=== PATIENT | male | born 1955 | race American Indian/Alaskan Native ===

== ENCOUNTER 2021-06-24 23:00 | Inpatient (IN) | payer MEDICARE ==
[2021-06-25] MEDS ORDERED: ONDANSETRON 4 MG ODT TAB PO ONE (00:31)
[2021-06-25] MEDS ORDERED: HYDROcodone/ACETAMINOPHEN 7.5-325MG TAB PO ONE (00:31)
[2021-06-25] MEDS ORDERED: predniSONE 50 MG TAB PO ONE (00:31)
--- NOTE | 2021-06-25 01:11 | XRay Report ---
Left hip 2 views INDICATION: Left hip pain following fall IMPRESSION: There are nondisplaced fractures involving the left inferior pubic ramus as well as the l eft ischium near the junction with the left acetabulum. Diffuse osteopenia. Signer Name: Ruslan Thomas MD Signed: 06/25/2021 1:07 AM Workstation Name: [id number]
--- NOTE | 2021-06-25 01:24 | Emergency Department Report ---
ED Lower Extremity HPI - General Chief Complaint: Pain General Stated Complaint: LEFT HIP PAIN Source: patient, EMS Mode of arrival: Wheelchair Limitations: No Limitations - History of Present Illness Initial Comments: Patient is a 66-year-old male with a history of chronic osteoarthritis and s/p left total hip replacement presents to the ED with complaint of acute onset persistent severe nontraumatic left hip pain for the last 4 hours. Patient states that she is unable to bear weight on the left leg because of severe left hip pain. Patient states that he was seated in the house in the couch watching TV when he turned and felt a sharp pain in his left hip and since then he has not been able to bear weight on the left leg because of worsening pain. Patient denies numbness and tingling or weakness of left leg, dizziness, syncope, chest pain, fall, heavy lifting, hematuria, dysuria, testicular pain, back pain, chest pain, shortness of breath, urinary or bowel incontinence. MD Complaint: hip injury (left hip pain) -: Sudden, hour(s) (4) Injury: Hip: Left (pain) Type of Injury: inversion Place: home Severity: severe Severity scale (0 -10): 8 Improves With: nothing Worsens With: weight bearing, movement, palpation Context: walking Associated Symptoms: snap/pop sensation, unable to bear weight. denies: swelling, numbness, tingling, able to partially bear weight, ambulatory - Related Data Allergies Allergy/AdvReac Type Severity Reaction Status Date / Time No Known Allergies Allergy Verified 06/24/21 23:33 ED Review of Systems ROS: Stated complaint: LEFT HIP PAIN Other details as noted in HPI Constitutional: denies: chills, fever Eyes: denies: eye pain, eye discharge, vision change ENT: denies: ear pain, throat pain Respiratory: denies: cough, shortness of breath, wheezing Cardiovascular: denies: chest pain, palpitations Endocrine: no symptoms reported Gastrointestinal: denies: abdominal pain, nausea, vomiting, diarrhea Genitourinary: denies: urgency, dysuria Musculoskeletal: arthralgia (Left hip pain). denies: back pain, joint swelling Skin: denies: rash, lesions Neurological: denies: headache, weakness, paresthesias Psychiatric: denies: anxiety, depression Hematological/Lymphatic: denies: easy bleeding, easy bruising ED Past Medical Hx - Past Medical History Hx Liver Disease: Yes ED Physical Exam - General Limitations: No Limitations General appearance: alert, in no apparent distress - Head Head exam: Present: atraumatic, normocephalic, normal inspection - Eye Eye exam: Present: normal appearance, PERRL, EOMI Pupils: Present: normal accommodation - ENT ENT exam: Present: normal exam, normal orophraynx, mucous membranes moist, TM's normal bilaterally, normal external ear exam - Neck Neck exam: Present: normal inspection, full ROM. Absent: tenderness - Respiratory Respiratory exam: Present: normal lung sounds bilaterally. Absent: respiratory distress, wheezes, rales, rhonchi, stridor, chest wall tenderness, accessory muscle use, decreased breath sounds, prolonged expiratory - Cardiovascular Cardiovascular Exam: Present: regular rate, normal rhythm, normal heart sounds. Absent: systolic murmur, diastolic murmur, rubs, gallop - GI/Abdominal GI/Abdominal exam: Present: soft, normal bowel sounds. Absent: tenderness, guarding, hyperactive bowel sounds, hypoactive bowel sounds, organomegaly - Extremities Exam Extremities exam: Present: normal inspection, tenderness (Palpable severe left hip tenderness with limited range of motion due to pain), normal capillary refill. Absent: full ROM (Limited range of motion of left hip due to pain), pedal edema, joint swelling, calf tenderness - Back Exam Back exam: Present: normal inspection, full ROM. Absent: tenderness, CVA tenderness (R), CVA tenderness (L), muscle spasm, paraspinal tenderness, vertebral tenderness - Neurological Exam Neurological exam: Present: alert, oriented X3, CN II-XII intact, normal gait, reflexes normal - Psychiatric Psychiatric exam: Present: normal affect, normal mood - Skin Skin exam: Present: warm, dry, intact, normal color. Absent: rash ED Course Vital Signs 06/24/21 23:32 Temperature 98.7 F Pulse Rate 67 Respiratory 16 Rate Blood Pressure 121/100 [Left] O2 Sat by Pulse 100 Oximetry - Reevaluation(s) Reevaluation #1: 06/25/21 01:43 I paged and discussed the patient's case with the orthopedic surgeon on-call Dr. Chandler who advised that the patient be admitted by the hospitalist physician on-call for pain control and he shall consult with the patient in the morning. I therefore paged and discussed the patient's case with the hospitalist physician on-call Dr. Le who admitted the patient to the hospital. ED Lower Extremity MDM - Radiology Data Radiology results: report reviewed, image reviewed [facility] [address] [place] [address] XRay Report Signed Patient: COLEEN GARCIA MR#: [id number] : 1955 Acct:[id number] Age/Sex: 66 / M ADM Date: 06/24/21 Loc: ED Attending Dr: Ordering Physician: DARCIE PINTO Date of Service: 06/25/21 Procedure(s): XR hip 2-3V LT Accession Number(s): [id number] cc: DARCIE PINTO Fluoro Time In Minutes: Left hip 2 views INDICATION: Left hip pain following fall IMPRESSION: There are nondisplaced fractures involving the left inferior pubic ramus as well as the left ischium near the junction with the left acetabulum. Diffuse osteopenia. Signer Name: Ruslan Thomas MD Signed: 06/25/2021 1:07 AM Workstation Name: [id number] Transcribed By: Dictated By: Ruslan Thomas MD Electronically Authenticated By: Ruslan Thomas MD Signed Date/Time: 06/25/21106 DD/ 3 TD/TT: - Medical Decision Making This is a 66-year-old male with a history of chronic osteoarthritis and s/p left total hip replacement presents to the ED with complaint of acute onset persistent severe nontraumatic left hip pain for the last 4 hours. Patient states that she is unable to bear weight on the left leg because of severe left hip pain. Patient states that he was seated in the house in the couch watching TV when he turned and felt a sharp pain in his left hip and since then he has not been able to bear weight on the left leg because of worsening pain. In the ED, patient is alert and oriented x3 and is not in any distress but appears to be in significant pain. Patient was treated for pain in the ED and left hip x- ray showed diffuse osteopenia and nondisplaced fractures involving the left inferior pubic ramus as well as the left ischium near the junction with the left acetabulum. I discussed the patient's case with the ED attending physician Dr. Oseguera who advised that the orthopedic surgeon on-call be paged and to discuss the findings with him. I therefore paged and discussed the patient's case and findings with the orthopedic surgeon on-call Dr. Chandler who advised that the patient be admitted to the hospital by the hospitalist physician on-call for pain control and he shall consult on the patient in the morning upon admission. I therefore paged and discussed the patient's case with the hospitalist rich sahu on-call Dr. Le who admitted the patient to the hospital for pain control. - Differential Diagnosis Hip fracture; hip dislocation; hip sprain; hip contusion Critical care attestation.: If time is entered above; I have spent that time in minutes in the direct care of this critically ill patient, excluding procedure time. ED Disposition Clinical Impression: Nondisplaced fracture of left ischium Qualifiers: Encounter type: initial encounter Fracture type: closed Fracture morphology: unspecified fracture morphology Qualified Code(s): S32.602A - Unspecified fracture of left ischium, initial encounter for closed fracture Nondisplaced fracture of left pubis Qualifiers: Encounter type: initial encounter Fracture type: closed Qualified Code(s): S32.502A - Unspecified fracture of left pubis, initial encounter for closed fracture Contusion of left hip Qualifiers: Encounter type: initial encounter Qualified Code(s): S70.02XA - Contusion of left hip, initial encounter Disposition: 02 [facility]ORT TERM [facility] Is pt being admited?: Yes Does the pt Need Aspirin: No Condition: Stable Time of Disposition: 01:49 Print Language: CZECH
[2021-06-25] MEDS ORDERED: ONDANSETRON 4 MG/2 ML INJ IV PRN ×2 (01:51→03:36)
[2021-06-25] MEDS ORDERED: HYDROmorphone 1 MG/1 ML INJ IV PRN (01:51)
[2021-06-25] MEDS ORDERED: ACETAMINOPHEN 325 MG TAB PO PRN ×2 (01:51→03:36)
[2021-06-25] MEDS ORDERED: HYDROcodone/ACETAMINOPHEN 5-325 MG TAB PO PRN (01:51)
[2021-06-25 02:23] LABS: Basophils # (Auto) 0.1 K/mm3 (0.0-0.1); Basophils % (Auto) 2.2 % (0.0-1.8); Eosinophils % (Auto) 0.1 % (0.0-4.3); Hematocrit 36.7 % (35.5-45.6); Hemoglobin 12.2 gm/dl (11.8-15.2); Lymphocytes # (Auto) 0.8 K/mm3 (1.2-5.4); Lymphocytes % (Auto) 16.9 % (13.4-35.0); Mean Corpuscular HGB Conc 33 % (32-34); Mean Corpuscular Volume 96 fl (84-94); Monocytes # (Auto) 0.5 K/mm3 (0.0-0.8); Monocytes % (Auto) 10.6 % (0.0-7.3); Platelet Count 101 K/mm3 (140-440); Red Blood Count 3.84 M/mm3 (3.65-5.03); Red Cell Distribution Width 16.8 % (13.2-15.2)
[2021-06-25 02:29] LABS: Alanine Aminotransferase 42 units/L (7-56); Albumin 3.2 g/dL (3.9-5); BUN/Creatinine Ratio 9; Blood Urea Nitrogen 7 mg/dL (9-20); Hemolysis Index 7
[2021-06-25] MEDS ORDERED: LIDOCAINE 2%/EPINEPHRINE 1:200,000 VIAL (20 ML) INFILTRATI ONE (03:21)
[2021-06-25] MEDS ORDERED: oxyCODONE /ACETAMINOPHEN 5-325MG TAB PO PRN (03:36)
--- NOTE | 2021-06-25 03:43 | History and Physical Report ---
History of Present Illness Date of examination: 06/25/21 Date of admission: 06/25/21 Chief complaint: Left hip pain History of present illness: 66-year-old male with a history of chronic osteoarthritis and s/p left total hip replacement presents to the ED with complaint of acute onset persistent severe nontraumatic left hip pain for the last 4 hours. Patient states that she is unable to bear weight on the left leg because of severe left hip pain. Patient states that he was seated in the house in the couch watching TV when he turned and felt a sharp pain in his left hip and since then he has not been able to bear weight on the left leg because of worsening pain. Patient denies numbness and tingling or weakness of left leg, dizziness, syncope, chest pain, fall, heavy lifting, hematuria, dysuria, testicular pain, back pain, chest pain, shortness of breath, urinary or bowel incontinence. X-ray of the left hip showed there are nondisplaced fractures involving the left inferior pubic ramus as well as the left ischium near the junction with the left acetabulum. Diffuse osteopenia. Case discussed with the orthopedic surgeon on-call Dr. Chandler who advised for pain control and he will see the patient in the morning. Med rec is not available Past History Past Medical History: arthritis, liver disease Past Surgical History: total hip replacement Medications and Allergies Allergies Allergy/AdvReac Type Severity Reaction Status Date / Time No Known Allergies Allergy Verified 06/24/21 23:33 Active Meds: Active Medications Acetaminophen (Acetaminophen 325 Mg Tab) 650 mg PO Q4H PRN PRN Reason: Pain MILD(1-3)/Fever >100.5/BHANDARI Hydrocodone Bitart/Acetaminophen (Hydrocodone/Acetaminophen 5-325 Mg Tab) 2 each PO Q6H PRN PRN Reason: Pain, Moderate (4-6) Hydromorphone HCl (Hydromorphone 1 Mg/1 Ml Inj) 0.5 mg IV Q3H PRN PRN Reason: Pain , Severe (7-10) Ondansetron HCl (Ondansetron 4 Mg/2 Ml Inj) 4 mg IV Q8H PRN PRN Reason: Nausea And Vomiting Sodium Chloride (Sodium Chloride 0.9% 10 Ml Flush Syringe) 10 ml IV BID [place] Sodium Chloride (Sodium Chloride 0.9% 10 Ml Flush Syringe) 10 ml IV PRN PRN PRN Reason: LINE FLUSH Review of Systems All systems: negative Musculoskeletal: other (Severe pain in the left hip) Exam - Constitutional Vitals: Temp Pulse Resp BP Pulse Ox 98.7 F 67 16 121/100 100 06/24/21 23:32 06/24/21 23:32 06/24/21 23:32 06/24/21 23:32 06/24/21 23:32 General appearance: Present: no acute distress, well-nourished - EENT Eyes: Present: PERRL ENT: hearing intact, clear oral mucosa - Neck Neck: Present: supple, normal ROM - Respiratory Respiratory effort: normal Respiratory: bilateral: CTA - Cardiovascular Heart Sounds: Present: S1 & S2. Absent: rub, click - Extremities Extremities: pulses symmetrical, No edema Peripheral Pulses: within normal limits - Abdominal General gastrointestinal: Present: soft, non-tender, non-distended, normal bowel sounds Male genitourinary: Present: normal - Integumentary Integumentary: Present: clear, warm, dry - Musculoskeletal Musculoskeletal: other (Severe left hip pain) - Psychiatric Psychiatric: appropriate mood/affect, intact judgment & insight - Neurologic Neurologic: CNII-XII intact, moves all extremities Results - Labs CBC & Chem 7: 06/25/21 01:51 06/25/21 01:51 Labs: Laboratory Last Values WBC 4.7 K/mm3 (4.5-11.0) 06/25/21 01:51 RBC 3.84 M/mm3 (3.65-5.03) 06/25/21 01:51 Hgb 12.2 gm/dl (11.8-15.2) 06/25/21 01:51 Hct 36.7 % (35.5-45.6) 06/25/21 01:51 MCV 96 fl (84-94) H 06/25/21 01:51 MCH 32 pg (28-32) 06/25/21 01:51 MCHC 33 % (32-34) 06/25/21 01:51 RDW 16.8 % (13.2-15.2) H 06/25/21 01:51 Plt Count 101 K/mm3 (140-440) L 06/25/21 01:51 Lymph % (Auto) 16.9 % (13.4-35.0) 06/25/21 01:51 [place] % (Auto) 10.6 % (0.0-7.3) H 06/25/21 01:51 Eos % (Auto) 0.1 % (0.0-4.3) 06/25/21 01:51 Baso % (Auto) 2.2 % (0.0-1.8) H 06/25/21 01:51 Lymph # (Auto) 0.8 K/mm3 (1.2-5.4) L 06/25/21 01:51 [place] # (Auto) 0.5 K/mm3 (0.0-0.8) 06/25/21 01:51 Eos # (Auto) 0.0 K/mm3 (0.0-0.4) 06/25/21 01:51 Baso # (Auto) 0.1 K/mm3 (0.0-0.1) 06/25/21 01:51 Seg Neutrophils % 70.2 % (40.0-70.0) H 06/25/21 01:51 Seg Neutrophils # 3.3 K/mm3 (1.8-7.7) 06/25/21 01:51 Sodium 142 mmol/L (137-145) 06/25/21 01:51 Potassium 4.2 mmol/L (3.6-5.0) 06/25/21 01:51 Chloride 102.7 mmol/L (98-107) 06/25/21 01:51 Carbon Dioxide 21 mmol/L (22-30) L 06/25/21 01:51 Anion Gap 23 mmol/L 06/25/21 01:51 BUN 7 mg/dL (9-20) L 06/25/21 01:51 Creatinine 0.8 mg/dL (0.8-1.3) 06/25/21 01:51 Estimated GFR > 60 ml/min 06/25/21 01:51 BUN/Creatinine Ratio 9 % 06/25/21 01:51 Glucose 116 mg/dL (75-100) H 06/25/21 01:51 Calcium 9.0 mg/dL (8.4-10.2) 06/25/21 01:51 Total Bilirubin 3.60 mg/dL (0.1-1.2) H 06/25/21 01:51 AST 72 units/L (5-40) H 06/25/21 01:51 ALT 42 units/L (7-56) 06/25/21 01:51 Alkaline Phosphatase 166 units/L (35-129) H 06/25/21 01:51 Total Protein 7.3 g/dL (6.3-8.2) 06/25/21 01:51 Albumin 3.2 g/dL (3.9-5) L 06/25/21 01:51 Albumin/Globulin Ratio 0.8 % 06/25/21 01:51 Assessment and Plan VTE prophylaxis?: Chemical Plan of care discussed with patient/family: Yes - Patient Problems (1) Nondisplaced fracture of left pubis Current Visit: Yes Status: Acute Qualifiers: Encounter type: initial encounter Fracture type: closed Qualified Code(s): S32.502A - Unspecified fracture of left pubis, initial encounter for closed fracture Plan to address problem: Admit the patient to the medical floor. N.p.o. D5 half-normal saline at the rate of 100 cc/h. Morphine 2 mg IV every 4 hours as needed. Will consult orthopedic surgeon for further evaluation and treatment. We will monitor the patient closely. PT evaluation (2) Nondisplaced fracture of left ischium Current Visit: Yes Status: Acute Qualifiers: Encounter type: initial encounter Fracture type: closed Fracture morphology: unspecified fracture morphology Qualified Code(s): S32.602A - Unspecified fracture of left ischium, initial encounter for closed fracture Plan to address problem: N.p.o. D5 half-normal saline at the rate of 100 cc/h. Morphine 2 mg IV every 4 hours as needed. Will consult orthopedic surgeon for further evaluation and treatment. We will monitor the patient closely. PT evaluation (3) Osteoarthritis Current Visit: Yes Status: Acute Plan to address problem: Tylenol 650 mg p.o. every 6 hours as needed. Morphine 2 mg IV every 4 hours as needed. We continue the home medication. Will consult orthopedic surgeon for evaluation (4) Liver disease Current Visit: Yes Status: Acute Plan to address problem: Pepcid 20 mg IV every 12 hours. We will monitor the liver function repeat CMP in the morning (5) DVT prophylaxis Current Visit: Yes Status: Acute Plan to address problem: Heparin 5000 units subcu every 8 hours for DVT prophylaxis. Pepcid 20 mg IV every 12 hours for GI prophylaxis. Patient is a full code
[2021-06-25] MEDS ORDERED: SODIUM CHLORIDE 0.9% 1000 ML 1,000 ML IV ONE (05:12)
[2021-06-25] MEDS ORDERED: MORPHINE 4 MG/1 ML INJ IV ONE (05:12)
[2021-06-25] MEDS: HEPARIN 5,000 UNIT/1 ML VIAL SUB-Q SCH ×3 (06:13→22:11)
[2021-06-25] MEDS: MORPHINE 4 MG/1 ML INJ IV PRN (08:59)
--- NOTE | 2021-06-25 10:07 | Consultation ---
Past History Past Medical History: arthritis, liver disease Past Surgical History: total hip replacement Medications and Allergies Allergies Allergy/AdvReac Type Severity Reaction Status Date / Time No Known Allergies Allergy Verified 06/24/21 23:33 Active Meds: Active Medications Acetaminophen (Acetaminophen 325 Mg Tab) 650 mg PO Q4H PRN PRN Reason: Pain MILD(1-3)/Fever >100.5/BHANDARI Famotidine (Famotidine 20 Mg Tab) 20 mg PO BID [facility] Heparin Sodium (Porcine) (Heparin 5,000 Unit/1 Ml Vial) 5,000 unit SUB-Q Q8HR [facility] Last Admin: 06/25/21 06:13 Dose: Not Given Documented by: Hydromorphone HCl (Hydromorphone 1 Mg/1 Ml Inj) 1 mg IV Q4H PRN PRN Reason: Pain , Severe (7-10) Dextrose/Sodium Chloride (D5/0.45ns) 1,000 mls @ 100 mls/hr IV DIRECT [facility] Morphine Sulfate (Morphine 4 Mg/1 Ml Inj) 4 mg IV Q4H PRN PRN Reason: Pain, Moderate (4-6) Last Admin: 06/25/21 08:59 Dose: 4 mg Documented by: Ondansetron HCl (Ondansetron 4 Mg/2 Ml Inj) 4 mg IV Q8H PRN PRN Reason: Nausea And Vomiting Last Admin: 06/25/21 08:57 Dose: 4 mg Documented by: Sodium Chloride (Sodium Chloride 0.9% 10 Ml Flush Syringe) 10 ml IV BID [facility] Last Admin: 06/25/21 05:50 Dose: 10 ml Documented by: Sodium Chloride (Sodium Chloride 0.9% 10 Ml Flush Syringe) 10 ml IV PRN PRN PRN Reason: LINE FLUSH Last Admin: 06/25/21 05:49 Dose: 10 ml Documented by:
[2021-06-25] MEDS: FAMOTIDINE 20 MG TAB PO SCH ×2 (10:13→22:11)
--- NOTE | 2021-06-25 10:19 | Consultation ---
History of Present Illness - HPI Consult date: 06/25/21 Past History Past Medical History: arthritis, liver disease Past Surgical History: total hip replacement Medications and Allergies Allergies Allergy/AdvReac Type Severity Reaction Status Date / Time No Known Allergies Allergy Verified 06/24/21 23:33 Active Meds: Active Medications Acetaminophen (Acetaminophen 325 Mg Tab) 650 mg PO Q4H PRN PRN Reason: Pain MILD(1-3)/Fever >100.5/BHANDARI Famotidine (Famotidine 20 Mg Tab) 20 mg PO BID [facility] Last Admin: 06/25/21 10:13 Dose: 20 mg Documented by: Heparin Sodium (Porcine) (Heparin 5,000 Unit/1 Ml Vial) 5,000 unit SUB-Q Q8HR [facility] Last Admin: 06/25/21 06:13 Dose: Not Given Documented by: Hydromorphone HCl (Hydromorphone 1 Mg/1 Ml Inj) 1 mg IV Q4H PRN PRN Reason: Pain , Severe (7-10) Dextrose/Sodium Chloride (D5/0.45ns) 1,000 mls @ 100 mls/hr IV DIRECT [facility] Morphine Sulfate (Morphine 4 Mg/1 Ml Inj) 4 mg IV Q4H PRN PRN Reason: Pain, Moderate (4-6) Last Admin: 06/25/21 08:59 Dose: 4 mg Documented by: Ondansetron HCl (Ondansetron 4 Mg/2 Ml Inj) 4 mg IV Q8H PRN PRN Reason: Nausea And Vomiting Last Admin: 06/25/21 08:57 Dose: 4 mg Documented by: Sodium Chloride (Sodium Chloride 0.9% 10 Ml Flush Syringe) 10 ml IV BID [facility] Last Admin: 06/25/21 10:14 Dose: 10 ml Documented by: Sodium Chloride (Sodium Chloride 0.9% 10 Ml Flush Syringe) 10 ml IV PRN PRN PRN Reason: LINE FLUSH Last Admin: 06/25/21 05:49 Dose: 10 ml Documented by: Assessment and Plan Assessment: 1. Pubic and ischial rami fractures, left hemipelvis; 2. S/P total hip replacement, left hip (remote past) , intact and stable Recommendation: 1. Admit for pain management 2. Physical therapy for gait training utilizing a walker or crutches, weight- bear as tolerated 3. Charge planning to include home health physical therapy for 2 to 3 weeks. Discussion: This is a 66-year-old gentleman who apparently lives alone and is status post total hip replacement approximately 3 years ago at [facility]. He had the misfortune of slipping and falling at home when his left leg "gave out". He was unable to bear weight without severe pain on the left side. He was seen in the emergency room in the second mate hours of 06/25/2021 where x-rays revealed what appears to be a stable total hip prosthesis without any periprosthetic fractures. There is however, a nondisplaced inferior pubic ramus fracture and an ischial ramus fracture involving the left hemipelvis. His physical examination is unremarkable. There is no tenderness over the greater trochanter or over the hip joint. There is however pain to palpation overlying the ischial tuberosity and the left side of the symphysis pubis. The left leg is straight and not shortened. Neurovascular exam for the left lower extremity is unremarkable. X-ray: AP pelvis x-rays show an inferior pubic ramus fracture and a corresponding ischial ramus fracture involving the left hemipelvis with an intact noncemented acetabular cup and total hip femoral component.
--- NOTE | 2021-06-25 15:19 | Progress Note ---
Assessment and Plan Assessment and plan: 66-year-old male with a history of chronic osteoarthritis and s/p left total hip replacement presents to the ED with complaint of acute onset persistent severe nontraumatic left hip pain for the last 4 hours. #Pubic and ischial rami fractures #Nondisplaced fracture of the left pubis and left ischium #History of total hip replacement -Fractures seen on x-ray of left hip -Pain management: Acetaminophen 650 mg every 6 hours, IV morphine 2 mg every 4 hours for moderate pain. IV Dilaudid 1 mg every 3 hours for severe pain. -Orthopedic surgery consulted upon ED presentation; appreciate recs -No surgical intervention at this time. Consulting physical therapy for further evaluation. Patient will likely require possible home health with PT for approximately 2-3 weeks (per orthopedic surgery) #Metabolic acidosis (anion gap) -Gap 18 -Status post D5W at 100 cc/hour in the ED -We will continue to monitor with repeat BMP in the morning. Will order lactic acid. #Elevated blood pressure -BP 165/92 -Possibly secondary to pain; will continue to monitor #Elevated alkaline phosphatase #Elevated transaminase -Alk phos 166, AST 72 -Continue to monitor. Pending repeat CMP #Thrombocytopenia -Platelets 101 -We will continue to monitor #History of osteoarthritis -We will continue to monitor #DVT prophylaxis -Continue subcutaneous heparin 5000 units every 8 hours Disposition Plan: Pending physical therapy evaluation. Total Time Spent with Patient (Minutes): 40 History Interval history: No acute events overnight. Hospitalist Physical - Constitutional Vitals: Temp Pulse Resp BP Pulse Ox 98.8 F 72 7 L 156/88 98 06/25/21 05:23 06/25/21 09:00 06/25/21 12:01 06/25/21 13:01 06/25/21 13:01 General appearance: Present: severe distress, well-nourished - EENT Eyes: Present: PERRL, EOM intact ENT: hearing intact, clear oral mucosa, dentition normal - Neck Neck: Present: supple, normal ROM - Respiratory Respiratory effort: normal - Cardiovascular Rhythm: regular Heart Sounds: Present: S1 & S2 - Extremities Extremities: no ischemia, pulses intact, pulses symmetrical, No edema, normal temperature, normal color Extremity abnormal: tenderness (Appropriate tenderness at left hip) Peripheral Pulses: within normal limits - Abdominal General gastrointestinal: soft, non-tender, non-distended, normal bowel sounds - Integumentary Integumentary: Present: clear, warm, dry - Psychiatric Psychiatric: appropriate mood/affect, intact judgment & insight, memory intact, cooperative - Neurologic Neurologic: CNII-XII intact, moves all extremities - Allied Health Allied health notes reviewed: nursing HEART Score - HEART Score History: Slightly suspicious EKG: Non-specific Age: 45-65 - Critical Actions Critical Actions: 0-3 pts:0.9-1.7%risk of adverse cardiac event.Candidate for discharge Results - Labs CBC & Chem 7: 06/25/21 01:51 06/25/21 01:51 Labs: Laboratory Last Values WBC 4.7 K/mm3 (4.5-11.0) 06/25/21 01:51 RBC 3.84 M/mm3 (3.65-5.03) 06/25/21 01:51 Hgb 12.2 gm/dl (11.8-15.2) 06/25/21 01:51 Hct 36.7 % (35.5-45.6) 06/25/21 01:51 MCV 96 fl (84-94) H 06/25/21 01:51 MCH 32 pg (28-32) 06/25/21 01:51 MCHC 33 % (32-34) 06/25/21 01:51 RDW 16.8 % (13.2-15.2) H 06/25/21 01:51 Plt Count 101 K/mm3 (140-440) L 06/25/21 01:51 Lymph % (Auto) 16.9 % (13.4-35.0) 06/25/21 01:51 Dawes % (Auto) 10.6 % (0.0-7.3) H 06/25/21 01:51 Eos % (Auto) 0.1 % (0.0-4.3) 06/25/21 01:51 Baso % (Auto) 2.2 % (0.0-1.8) H 06/25/21 01:51 Lymph # (Auto) 0.8 K/mm3 (1.2-5.4) L 06/25/21 01:51 Dawes # (Auto) 0.5 K/mm3 (0.0-0.8) 06/25/21 01:51 Eos # (Auto) 0.0 K/mm3 (0.0-0.4) 06/25/21 01:51 Baso # (Auto) 0.1 K/mm3 (0.0-0.1) 06/25/21 01:51 Seg Neutrophils % 70.2 % (40.0-70.0) H 06/25/21 01:51 Seg Neutrophils # 3.3 K/mm3 (1.8-7.7) 06/25/21 01:51 Sodium 142 mmol/L (137-145) 06/25/21 01:51 Potassium 4.2 mmol/L (3.6-5.0) 06/25/21 01:51 Chloride 102.7 mmol/L (98-107) 06/25/21 01:51 Carbon Dioxide 21 mmol/L (22-30) L 06/25/21 01:51 Anion Gap 23 mmol/L 06/25/21 01:51 BUN 7 mg/dL (9-20) L 06/25/21 01:51 Creatinine 0.8 mg/dL (0.8-1.3) 06/25/21 01:51 Estimated GFR > 60 ml/min 06/25/21 01:51 BUN/Creatinine Ratio 9 % 06/25/21 01:51 Glucose 116 mg/dL (75-100) H 06/25/21 01:51 Calcium 9.0 mg/dL (8.4-10.2) 06/25/21 01:51 Total Bilirubin 3.60 mg/dL (0.1-1.2) H 06/25/21 01:51 AST 72 units/L (5-40) H 06/25/21 01:51 ALT 42 units/L (7-56) 06/25/21 01:51 Alkaline Phosphatase 166 units/L (35-129) H 06/25/21 01:51 Total Protein 7.3 g/dL (6.3-8.2) 06/25/21 01:51 Albumin 3.2 g/dL (3.9-5) L 06/25/21 01:51 Albumin/Globulin Ratio 0.8 % 06/25/21 01:51 Active Medications - Current Medications Current Medications: Generic Name Dose Route Start Last Admin Trade Name Freq PRN Reason Stop Dose Admin Acetaminophen 650 mg 06/25/21 01:51 Acetaminophen 325 Mg Tab PO Q4H PRN Pain MILD(1-3)/Fever >100.5/BHANDARI Famotidine 20 mg 06/25/21 10:00 06/25/21 10:13 Famotidine 20 Mg Tab PO 20 mg BID FORTINO Administration Heparin Sodium (Porcine) 5,000 unit 06/25/21 06:00 06/25/21 06:13 Heparin 5,000 Unit/1 Ml Vial SUB-Q Not Given Q8HR FORTINO Hydromorphone HCl 1 mg 06/25/21 09:00 Hydromorphone 1 Mg/1 Ml Inj IV Q4H PRN Pain , Severe (7-10) Dextrose/Sodium Chloride 1,000 mls @ 100 mls/hr 06/25/21 04:00 D5/0.45ns IV DIRECT FORTINO Morphine Sulfate 4 mg 06/25/21 03:36 06/25/21 08:59 Morphine 4 Mg/1 Ml Inj IV 4 mg Q4H PRN Administration Pain, Moderate (4-6) Ondansetron HCl 4 mg 06/25/21 01:51 06/25/21 08:57 Ondansetron 4 Mg/2 Ml Inj IV 4 mg Q8H PRN Administration Nausea And Vomiting Sodium Chloride 10 ml 06/25/21 02:00 06/25/21 10:14 Sodium Chloride 0.9% 10 Ml Flush Syringe IV 10 ml BID FORTINO Administration Sodium Chloride 10 ml 06/25/21 01:51 06/25/21 05:49 Sodium Chloride 0.9% 10 Ml Flush Syringe IV 10 ml PRN PRN Administration LINE FLUSH
[2021-06-25] MEDS: D5W/0.45% NACL 1,000 ML IV SCH (15:20)
[2021-06-25] MEDS: HYDROmorphone 1 MG/1 ML INJ IV PRN ×2 (15:20→22:33)
[2021-06-26] MEDS: D5W/0.45% NACL 1,000 ML IV SCH ×2 (03:32→15:25)
[2021-06-26] MEDS: MORPHINE 4 MG/1 ML INJ IV PRN (03:43)
[2021-06-26] MEDS: HEPARIN 5,000 UNIT/1 ML VIAL SUB-Q SCH ×3 (06:08→22:14)
[2021-06-26 07:33] LABS: Basophils # (Auto) 0.1 K/mm3 (0.0-0.1); Basophils % (Auto) 0.8 % (0.0-1.8); Eosinophils # (Auto) 0.1 K/mm3 (0.0-0.4); Eosinophils % (Auto) 0.9 % (0.0-4.3); Hemoglobin 11.5 gm/dl (11.8-15.2); Lymphocytes # (Auto) 2.3 K/mm3 (1.2-5.4); Mean Corpuscular HGB Conc 33 % (32-34); Mean Corpuscular Volume 98 fl (84-94); Monocytes # (Auto) 0.6 K/mm3 (0.0-0.8); Monocytes % (Auto) 9.2 % (0.0-7.3); Red Blood Count 3.59 M/mm3 (3.65-5.03)
[2021-06-26 07:54] LABS: Blood Urea Nitrogen 8 mg/dL (9-20); Calcium 8.8 mg/dL (8.4-10.2); Hemolysis Index 3
[2021-06-26 08:03] LABS: BUN/Creatinine Ratio 11
[2021-06-26] MEDS: HYDROmorphone 1 MG/1 ML INJ IV PRN ×4 (09:38→23:30)
[2021-06-26] MEDS: FAMOTIDINE 20 MG TAB PO SCH ×2 (09:40→22:14)
--- NOTE | 2021-06-26 11:53 | Progress Note ---
Assessment and Plan Assessment and plan: 66-year-old male with a history of chronic osteoarthritis and s/p left total hip replacement presents to the ED with complaint of acute onset persistent severe nontraumatic left hip pain for the last 4 hours. #Pubic and ischial rami fractures #Nondisplaced fracture of the left pubis and left ischium #History of total hip replacement -Fractures seen on x-ray of left hip -Pain management: Acetaminophen 650 mg every 6 hours, IV morphine 2 mg every 4 hours for moderate pain. IV Dilaudid 1 mg every 3 hours for severe pain. -Orthopedic surgery consulted upon ED presentation; appreciate rec -No surgical intervention at this time. Consulted physical therapy; pending recommendation. Patient will likely require possible home health with PT for approximately 2-3 weeks (per orthopedic surgery) #Metabolic acidosis (anion gap)-resolved -Gap 14 -Status post D5W at 100 cc/hour in the ED -We will continue to monitor with repeat BMP in the morning. Lactic acid ordered but not drawn. #Elevated blood pressure-resolved -BP 165/92 -Possibly secondary to pain; will continue to monitor #Elevated alkaline phosphatase #Elevated transaminase -Alk phos 166, AST 72 -Continue to monitor. Pending repeat CMP #Thrombocytopenia -Platelets 101 -We will continue to monitor #History of osteoarthritis -We will continue to monitor #DVT prophylaxis -Continue subcutaneous heparin 5000 units every 8 hours Disposition Plan: Pending physical therapy evaluation. Total Time Spent with Patient (Minutes): 30 History Interval history: No acute events overnight. Hospitalist Physical - Constitutional Vitals: Temp Pulse Resp BP Pulse Ox 97.9 F 75 20 116/69 97 06/26/21 07:02 06/26/21 07:02 06/26/21 07:02 06/26/21 07:02 06/26/21 08:19 General appearance: Present: mild distress, well-nourished - EENT Eyes: Present: PERRL, EOM intact ENT: hearing intact, clear oral mucosa, dentition normal - Neck Neck: Present: supple, normal ROM - Respiratory Respiratory effort: normal - Cardiovascular Rhythm: regular Heart Sounds: Present: S1 & S2 - Extremities Extremities: no ischemia, pulses intact, pulses symmetrical, No edema, normal temperature, normal color Extremity abnormal: tenderness (Moderate tenderness of the left hip with mild palpation) Peripheral Pulses: within normal limits - Abdominal General gastrointestinal: soft, non-tender, non-distended, normal bowel sounds - Integumentary Integumentary: Present: clear, warm, dry - Psychiatric Psychiatric: appropriate mood/affect, intact judgment & insight, memory intact, cooperative - Neurologic Neurologic: CNII-XII intact, moves all extremities - Allied Health Allied health notes reviewed: nursing HEART Score - HEART Score EKG: Non-specific Age: 45-65 - Critical Actions Critical Actions: 0-3 pts:0.9-1.7%risk of adverse cardiac event.Candidate for discharge Results - Labs CBC & Chem 7: 06/26/21 06:45 06/26/21 06:45 Labs: Laboratory Last Values WBC 7.0 K/mm3 (4.5-11.0) 06/26/21 06:45 RBC 3.59 M/mm3 (3.65-5.03) L 06/26/21 06:45 Hgb 11.5 gm/dl (11.8-15.2) L 06/26/21 06:45 Hct 35.0 % (35.5-45.6) L 06/26/21 06:45 MCV 98 fl (84-94) H 06/26/21 06:45 MCH 32 pg (28-32) 06/26/21 06:45 MCHC 33 % (32-34) 06/26/21 06:45 RDW 16.0 % (13.2-15.2) H 06/26/21 06:45 Plt Count 101 K/mm3 (140-440) L 06/25/21 01:51 Lymph % (Auto) 33.0 % (13.4-35.0) 06/26/21 06:45 White % (Auto) 9.2 % (0.0-7.3) H 06/26/21 06:45 Eos % (Auto) 0.9 % (0.0-4.3) 06/26/21 06:45 Baso % (Auto) 0.8 % (0.0-1.8) 06/26/21 06:45 Lymph # (Auto) 2.3 K/mm3 (1.2-5.4) 06/26/21 06:45 White # (Auto) 0.6 K/mm3 (0.0-0.8) 06/26/21 06:45 Eos # (Auto) 0.1 K/mm3 (0.0-0.4) 06/26/21 06:45 Baso # (Auto) 0.1 K/mm3 (0.0-0.1) 06/26/21 06:45 Seg Neutrophils % 56.1 % (40.0-70.0) 06/26/21 06:45 Seg Neutrophils # 3.9 K/mm3 (1.8-7.7) 06/26/21 06:45 Sodium 138 mmol/L (137-145) 06/26/21 06:45 Potassium 4.2 mmol/L (3.6-5.0) 06/26/21 06:45 Chloride 99.9 mmol/L (98-107) 06/26/21 06:45 Carbon Dioxide 28 mmol/L (22-30) D 06/26/21 06:45 Anion Gap 14 mmol/L 06/26/21 06:45 BUN 8 mg/dL (9-20) L 06/26/21 06:45 Creatinine 0.7 mg/dL (0.8-1.3) L 06/26/21 06:45 Estimated GFR > 60 ml/min 06/26/21 06:45 BUN/Creatinine Ratio 11 % 06/26/21 06:45 Glucose 102 mg/dL (75-100) H 06/26/21 06:45 Calcium 8.8 mg/dL (8.4-10.2) 06/26/21 06:45 Phosphorus 2.70 mg/dL (2.5-4.5) 06/26/21 06:45 Magnesium 1.70 mg/dL (1.7-2.3) 06/26/21 06:45 Total Bilirubin 3.60 mg/dL (0.1-1.2) H 06/25/21 01:51 AST 72 units/L (5-40) H 06/25/21 01:51 ALT 42 units/L (7-56) 06/25/21 01:51 Alkaline Phosphatase 166 units/L (35-129) H 06/25/21 01:51 Total Protein 7.3 g/dL (6.3-8.2) 06/25/21 01:51 Albumin 3.2 g/dL (3.9-5) L 06/25/21 01:51 Albumin/Globulin Ratio 0.8 % 06/25/21 01:51 Weaver/IV: Voiding Method Urinal Active Medications - Current Medications Current Medications: Generic Name Dose Route Start Last Admin Trade Name Freq PRN Reason Stop Dose Admin Acetaminophen 650 mg 06/25/21 01:51 Acetaminophen 325 Mg Tab PO Q4H PRN Pain MILD(1-3)/Fever >100.5/BHANDARI Famotidine 20 mg 06/25/21 10:00 06/26/21 09:40 Famotidine 20 Mg Tab PO 20 mg BID FORTINO Administration Heparin Sodium (Porcine) 5,000 unit 06/25/21 06:00 06/26/21 06:08 Heparin 5,000 Unit/1 Ml Vial SUB-Q 5,000 unit Q8HR FORTINO Administration Hydromorphone HCl 1 mg 06/25/21 09:00 06/26/21 09:38 Hydromorphone 1 Mg/1 Ml Inj IV 1 mg Q4H PRN Administration Pain , Severe (7-10) Dextrose/Sodium Chloride 1,000 mls @ 100 mls/hr 06/25/21 04:00 06/26/21 03:32 D5/0.45ns IV 100 mls/hr DIRECT FORTINO Administration Morphine Sulfate 4 mg 06/25/21 03:36 06/26/21 03:43 Morphine 4 Mg/1 Ml Inj IV 4 mg Q4H PRN Administration Pain, Moderate (4-6) Ondansetron HCl 4 mg 06/25/21 01:51 06/25/21 08:57 Ondansetron 4 Mg/2 Ml Inj IV 4 mg Q8H PRN Administration Nausea And Vomiting Sodium Chloride 10 ml 06/25/21 02:00 06/26/21 10:32 Sodium Chloride 0.9% 10 Ml Flush Syringe IV 10 ml BID FORTINO Administration Sodium Chloride 10 ml 06/25/21 01:51 06/25/21 05:49 Sodium Chloride 0.9% 10 Ml Flush Syringe IV 10 ml PRN PRN Administration LINE FLUSH
[2021-06-26] MEDS ORDERED: FLU VACC QUAD 2021-22(6MOS UP)/PF 60 MCG/0.5 ML SYRINGE IM ONE (12:00)
[2021-06-26 18:22] LABS: Platelet Count 57 K/mm3 (140-440)
[2021-06-27] MEDS: HEPARIN 5,000 UNIT/1 ML VIAL SUB-Q SCH ×2 (05:39→15:47)
[2021-06-27] MEDS: D5W/0.45% NACL 1,000 ML IV SCH (05:40)
[2021-06-27] MEDS: HYDROmorphone 1 MG/1 ML INJ IV PRN (05:50)
[2021-06-27 08:36] LABS: Basophils % (Auto) 0.7 % (0.0-1.8); Eosinophils # (Auto) 0.1 K/mm3 (0.0-0.4); Eosinophils % (Auto) 1.6 % (0.0-4.3); Hematocrit 33.2 % (35.5-45.6); Hemoglobin 10.8 gm/dl (11.8-15.2); Lymphocytes # (Auto) 1.7 K/mm3 (1.2-5.4); Lymphocytes % (Auto) 24.6 % (13.4-35.0); Mean Corpuscular HGB Conc 33 % (32-34); Mean Corpuscular Volume 97 fl (84-94); Monocytes # (Auto) 0.5 K/mm3 (0.0-0.8); Monocytes % (Auto) 7.2 % (0.0-7.3); Red Blood Count 3.41 M/mm3 (3.65-5.03); Red Cell Distribution Width 16.4 % (13.2-15.2)
[2021-06-27 08:45] LABS: Blood Urea Nitrogen 6 mg/dL (9-20); Calcium 8.8 mg/dL (8.4-10.2); Hemolysis Index 4
[2021-06-27 08:48] LABS: BUN/Creatinine Ratio 10
[2021-06-27] MEDS: FAMOTIDINE 20 MG TAB PO SCH (09:08)
[2021-06-27 09:50] LABS: Platelet Count 65 K/mm3 (140-440)
[2021-06-27 13:39] VITALS: BP 122/67
--- NOTE | 2021-06-27 14:10 | Discharge Summary ---
Providers - Providers Date of Admission: 06/25/21 10:50 Date of discharge: 06/27/21 Attending physician: BRENDON KRAUSE MD 06/25/21 01:50 Consult to Physician [CONS] Stat Comment: To consult in the AM Consulting Provider: EULALIO STEELE Physician Instructions: Admit to hospitalist for pain control Reason For Exam: left hip fracture 06/25/21 14:37 Physical Therapy Evaluation and Treat [CONS] Routine Comment: Pending placement/discharge. Reason For Exam: Left hip fracture 06/25/21 15:41 Consult to Dietitian/Nutrition [CONS] Routine Physician Instructions: Reason For Exam: Reason for Consult: takes supplements at home 06/26/21 12:15 Occupational Therapy Evaluate and Treat [CONS] Urgent Comment: Reason For Exam: hip fracture Primary care physician: PARIMUTUEL CASHIER Hospitalization Condition: Good Pertinent studies: Reviewed. Procedures: None. Hospital course: The patient is a 66-year-old male with past medical history of chronic osteoarthritis and s/p left total hip replacement presents to the ED with complaint of acute onset persistent severe nontraumatic left hip pain for the last 4 hours. Patient was evaluated in the ED and found to have multiple fractures including his L pubic and ischium. The patient was evaluated by orthopedic surgery who determined that the patient would benefit from aggressive physical therapy rather than surgical intervention. The patient was evaluated by physical therapy and was discharged with a rolling walker as well as home health with PT. The patient expressed understanding. Disposition: 30 STILL A PATIENT Final Discharge Diagnosis (Prints w/discharge instructions): Fracture of the left pubic and ischium; ground-level fall Time spent for discharge: 35 Core Measure Documentation - Palliative Care Palliative Care/ Comfort Measures: Not Applicable - Core Measures Any of the following diagnoses?: none - VTE Discharge Requirements Deep Vein Thrombosis/Pulmonary Embolism Present on Admission: No Has pt received <5 days of overlap therapy or INR<2.0: No (Not indicated) Anticoagulant overlap therapy prescribed at discharge: No Contraindication No Overlap Therapy order at DC: Not Indicated - Acute [place] Discharge Requirements Aspirin at discharge: No Reason for no aspirin on DC: Medical contraindication (Not indicated) KIM/ARB for LVSD if EF <40%: Not Applicable Reason for no KIM/ARB: Medical contraindication (Not indicated) Beta eleanor at discharge: No Reason for no beta eleanor on DC: Medical contraindication (Not indicated) Statin for LDL = or >100 mg/dl on DC: Not Applicable Reason for no statin on DC: Medical contraindication (Not indicated) - Heart Failure Discharge Requirements KIM/ARB for LVSD if EF <40%: Not Applicable Reason for no KIM/ARB: Medical contraindication (Not indicated) Beta eleanor at discharge: No Reason for no beta eelanor on DC: Medical contraindication (Not indicated) - Stroke Discharge Requirements Statin for LDL = or >70 mg/dl on DC: Not Applicable Reason for no statin on DC: Not Indicated Anticoag for atrial fib/atrial flutter: Not Applicable Reason for no anticoag for AF/F on DC: Not Indicated Antithrombotic for ischemic stroke: No Reason for no antithrombotic on DC: Not Indicated Exam - Constitutional Vitals: Temp Pulse Resp BP Pulse Ox 98.2 F 97 H 18 122/67 97 06/27/21 12:20 06/27/21 12:20 06/27/21 12:20 06/27/21 12:20 06/27/21 12:22 General appearance: Present: mild distress - EENT Eyes: Present: PERRL, EOM intact ENT: hearing intact, clear oral mucosa, poor dentition - Neck Neck: Present: supple, normal ROM - Respiratory Respiratory effort: normal - Cardiovascular Rhythm: regular Heart Sounds: Present: S1 & S2 - Extremities Extremities: no ischemia, pulses intact, pulses symmetrical, normal temperature, normal color Extremity abnormal: tenderness (Moderate tenderness of left hip on mild palpation) Peripheral Pulses: within normal limits - Abdominal General gastrointestinal: Present: soft, non-tender, non-distended, normal bowel sounds Male genitourinary: Present: deferred - Rectal Rectal Exam: deferred - Integumentary Integumentary: Present: clear, warm, dry - Musculoskeletal Musculoskeletal: strength equal bilaterally - Psychiatric Psychiatric: appropriate mood/affect, intact judgment & insight, memory intact, cooperative - Neurologic Neurologic: CNII-XII intact, moves all extremities - Allied Health Allied health notes reviewed: nursing Plan Health Concerns: Patient should return back to the ER if experiencing any of the following: Weakness, loss of function, repeated fall on left hip, loss of sensation of groin, loss of ability to urinate, shortness of breath, chest pain/pressure, inability to tolerate oral intake, or confusion. Assessment: Patient will be discharging home with home health PT Follow up with: PRIMARY CAREMD [Primary Care Provider] - 7 Days MIGUEL GALICIA MD [Staff Physician] - 7 Days ([address] [place] [address] Appt: July 03, 2021 at 12:30 pm) Prescriptions: HYDROcodone/APAP 5-325 [[place] 5/325] 1 each PO Q6HR PRN #28 tablet PRN Reason: Pain
== END 2021-06-27 18:10 | disposition home health service (06) | DRG 543 ==
LOC: ED 23:00 → 3A 06-25 01:51 → OBSVTOIN 06-25 10:50 → 3A 06-25 13:03
PROVIDERS: ADMIT Hospitalist; ATTEND Student in an Organized Health Care Education/Training Program
DX: M84.454A Pathological fracture, pelvis, initial encounter for fracture (principal); E87.2 Acidosis; M19.90 Unspecified osteoarthritis, unspecified site; S70.02XA Contusion of left hip, initial encounter; Z96.642 Presence of left artificial hip joint; D69.6 Thrombocytopenia, unspecified; Y93.89 Activity, other specified; Y92.89 Other specified places as the place of occurrence of the external cause; Y99.8 Other external cause status
CPT/HCPCS: 36415; 80048; 80053; 82652; 83735; 84100; 85025; G0378; J7070; J1170; J1644; J2270; J2405; J7030; J7512; Q0162